=== PATIENT | male | born 1975 | race Two or more races ===

== ENCOUNTER 2017-10-01 11:49 | Inpatient (IN) | payer BC ==
[~2017-10-01] VITALS: Ht 175.3 cm; Wt 86.2 kg
[2017-10-01] MEDS ORDERED: IV NS 0.9% 1,000 ML BAG IV ONE (12:00)
[2017-10-01] MEDS ORDERED: ONDANSETRON HCL/PF 4 MG/2 ML VIAL IVP ONE (12:00)
[2017-10-01] MEDS ORDERED: HYDROMORPHONE INJ 2 MG/ML DISP.SYRIN IV ONE (12:00)
[2017-10-01 12:06] LABS: BASOPHILS # (AUTO) 0.1 /CMM (0.0-0.2); EOSINOPHILS % (AUTO) 0.1 % (0.0-6.0); HEMATOCRIT 45 % (39-51); HEMOGLOBIN 14.9 g/dL (13.5-17.5); LYMPHOCYTES # (AUTO) 0.9 /CMM (0.8-4.8); LYMPHOCYTES % (AUTO) 16.6 % (20.0-44.0); MEAN CORPUSCULAR HGB CONC 34 g/dl (31.0-36.0); MEAN CORPUSCULAR VOLUME 98 fL (80-96); MONOCYTES # (AUTO) 0.4 /CMM (0.1-1.30); MONOCYTES % (AUTO) 7.3 % (2.0-12.0); NEUTROPHILS # (AUTO) 4.2 /CMM (1.8-8.9); PLATELET COUNT (AUTO) 277 /CMM (150-450); RDW COEFFICIENT OF VARIATION 14.4 (11.5-15.0); RED BLOOD CELL COUNT(AUTO) 4.56 MIL/uL (4.5-6.0); WHITE BLOOD COUNT (AUTO) 5.6 K/uL (4.3-11.0)
[2017-10-01] MEDS ORDERED: ONDANSETRON HCL/PF 4 MG/2 ML VIAL ONE (12:08)
[2017-10-01] MEDS ORDERED: HYDROMORPHONE INJ 2 MG/ML DISP.SYRIN ONE (12:09)
[2017-10-01 12:16] LABS: CREATININE 0.9 mg/dL (0.6-1.3); POTASSIUM 3.6 mmol/L (3.5-5.1)
[2017-10-01 12:21] LABS: ALBUMIN 4.1 g/dL (3.4-5.0); BILIRUBIN,DIRECT 0.4 mg/dL (0.0-0.2); BILIRUBIN,TOTAL 1.2 mg/dL (0.2-1.0); TOTAL PROTEIN, SERUM 8.2 g/dL (6.4-8.2)
[2017-10-01 13:07] LABS: APPEARANCE,URINE Clear (CLEAR); BILIRUBIN,URINE SMALL (NEGATIVE); BLOOD, URINE Small Ery/uL (NEGATIVE); COLOR,URINE Dark (YELLOW); KETONES,URINE 40 (NEGATIVE); LEUKOCYTE ESTERASE ,URINE Negative (NEGATIVE); NITRITE, URINE Negative (NEGATIVE); PROTEIN,URINE Trace mg/dl (NEGATIVE); UGLUCOSE Negative (NEGATIVE)
--- NOTE | 2017-10-01 13:11 | NUR ---
CALLED [facility] [employer] [facility] AND REQUESTED A MED SURG BED FOR THIS PT.
--- NOTE | 2017-10-01 13:14 | NUR ---
CALLED [facility] FOR PANEL CALL AND DR BOSWELL WAS PAGED.
[2017-10-01 13:19] LABS: BACTERIA,URINE Few /HPF (None Seen); SQUAMOUS EPITHELIAL CELL,UR Rare /HPF (None Seen)
[2017-10-01] MEDS ORDERED: ESCI5TAB PO (13:47)
[2017-10-01] MEDS ORDERED: ALPR0.25 PO (13:47)
[2017-10-01] MEDS ORDERED: LORAZEPAM INJ 2 MG/ML VIAL IV ONE (14:00)
[2017-10-01] MEDS ORDERED: LORAZEPAM INJ 2 MG/ML VIAL ONE (14:01)
--- NOTE | 2017-10-01 14:09 | NUR ---
PT IS ASSIGNED TO MED SURG RM#: [id number], PT IS DOAGNOSED WITH ALCOHOL WITHDRAWL, AND DR BOSWELL IS THE ACCEPTING MD.
[2017-10-01] MEDS ORDERED: MAGNESIUM HYDROXIDE 30 ML UDC PO PRN (15:00)
[2017-10-01] MEDS ORDERED: Z GUARD REMEDY 2 OZ OINT TP PRN (15:00)
[2017-10-01] MEDS ORDERED: MAG HYDROX/AL HYDROX/SIMETH 30 ML UDC PO PRN (15:00)
[2017-10-01] MEDS: IV NS 0.9% 1,000 ML IV PRN (15:52)
--- NOTE | 2017-10-01 16:58 | NUR ---
PER DR BOSWELL, FULL LIQUID DIET
[2017-10-01] MEDS: HYDROCODONE/APAP 5/325MG 1 EACH TABLET PO PRN ×2 (17:21→21:27)
[2017-10-01] MEDS: Thiamine 100 MG in IV D5W 50 ML IV SCH (17:22)
[2017-10-01] MEDS: ONDANSETRON HCL/PF 4 MG/2 ML VIAL IVP PRN (18:15)
[2017-10-01] MEDS: LORAZEPAM INJ 2 MG/ML VIAL IV PRN (18:34)
--- NOTE | 2017-10-01 18:35 | NUR ---
ANXIETY NOTED- ATIVAN ADMINISTERED PER ORDERS
[2017-10-01 18:46] VITALS: BP 154/89
--- NOTE | 2017-10-01 19:30 | NUR ---
RN CLOSING NOTES: PATIENT AOX4. ARRIVED TO UNIT AT 1530. NO SIGNS OF DISTRESS NOTED. NONLABORED BREATHING NOTED ON ROOM AIR. CLEAR SPEECH. IV SITE ON RIGHT AC GAUGE 18. PER PATIENT, LAST DRINK WAS YESTERDAY. HE STATES THAT HE DRINKS 2 BOTTLES OF WINE EVERY DAY. ATIVAN GIVEN FOR ANXIETY DURING SHIFT. PATIENT VOMITED X1, YELLOW CLEAR AFTER FULL LIQUID DINNER. ZOFRAN ADMINISTERED. NORCO ADMINISTERED FOR ABDOMINAL PAIN. RIGHT UPPER QUADRANT ACHING AND AGGREVATED BY FOOD. AT END OF SHIFT, PATIENT EMESIS CEASED. PATIENT STATES THAT PAIN HAS DECREASED. BED IN LOWEST LOCKED POSITION. CALL LIGHT WITHIN REACH. NO ANXIETY NOTED AT END OF SHIFT. NO SEIZURES NOTED DURING SHIFT
--- NOTE | 2017-10-01 19:30 | NUR ---
RN NOTES RECEIVED PATIENT IN BED AWAKE, AO X 3, ABLE TO MAKE NEEDS KNOWN. NO ACUTE DISTRESS NOTED. MONITORED FOR PAIN. IV SITE PATENT, INTACT; IVF INFUSING ORDERED. SAFETY REMINDERS GIVEN. ON LOW BED WITH BILATERAL UPPER SIDE RAILS UP. CALL PETERSEN WITHIN EASY REACH. WILL CONTINUE TO MONITOR.
[2017-10-01 20:00] VITALS: BP 141/97
[2017-10-01 20:18] VITALS: BP 141/97
[2017-10-01] MEDS: ZOLPIDEM TARTRATE 5 MG TABLET PO PRN (21:52)
--- NOTE | 2017-10-02 01:00 | NUR ---
RN NOTES RECEIVED NEW ORDERS FROM DR. HULL FOR ADMIT TO MED SURG AND MORPHINE SULFATE 2 MG IV Q 3 HOURS PRN, NOTED AND CARRIED OUT.
[2017-10-02] MEDS: MORPHINE SULFATE INJ 4 MG/ML DISP.SYRIN IV PRN ×5 (02:02→20:19)
[2017-10-02] MEDS: IV NS 0.9% 1,000 ML IV PRN ×2 (02:02→15:43)
[2017-10-02] MEDS: LORAZEPAM INJ 2 MG/ML VIAL IV PRN ×4 (04:29→18:49)
--- NOTE | 2017-10-02 06:30 | NUR ---
RN NOTES PATIENT IN BED AWAKE, RESPIRATION EVEN. MONITORED FOR PAIN. IVF INFUSING. NEEDS ATTENDED. SAFETY PRECAUTIONS AND COMFORT MEASURES IN PLACE. WILL GIVE REPORT TO DAY SHIFT FOR CONTINUITY OF CARE.
[2017-10-02 07:07] LABS: BASOPHILS % (AUTO) 0.9 % (0.0-2.0); EOSINOPHILS % (AUTO) 0.8 % (0.0-6.0); HEMATOCRIT 38 % (39-51); LYMPHOCYTES # (AUTO) 0.7 /CMM (0.8-4.8); LYMPHOCYTES % (AUTO) 13.7 % (20.0-44.0); MEAN CORPUSCULAR HGB CONC 35 g/dl (31.0-36.0); MEAN CORPUSCULAR VOLUME 97 fL (80-96); MONOCYTES # (AUTO) 0.4 /CMM (0.1-1.30); MONOCYTES % (AUTO) 8.5 % (2.0-12.0); NEUTROPHILS # (AUTO) 3.7 /CMM (1.8-8.9); NEUTROPHILS % (AUTO) 76.1 % (43.0-81.0); PLATELET COUNT (AUTO) 215 /CMM (150-450); RED BLOOD CELL COUNT(AUTO) 3.87 MIL/uL (4.5-6.0); WHITE BLOOD COUNT (AUTO) 4.8 K/uL (4.3-11.0)
[2017-10-02 07:13] LABS: CALCIUM, SERUM 8.6 mg/dL (8.5-10.1); CREATININE 0.8 mg/dL (0.6-1.3); MAGNESIUM 1.5 mg/dL (1.8-2.4); PHOSPHORUS 2.8 mg/dL (2.5-4.9); POTASSIUM 3.3 mmol/L (3.5-5.1)
--- NOTE | 2017-10-02 07:40 | NUR ---
RN NOTES PATIENT A/OX4, BREATHING EVEN AND UNLABORED, DENIES PAIN AT THIS TIME, KEPT PATIENT COMFORTABLE, PATIENT STILL VERBALIZED FEELING A LITTLE SHAKY, BUT NOT IN ANY DISTRESS, NEEDS ATTENDED, CALL LIGHT WITHIN REACH, WILL CONTINUE TO MONITOR.
[2017-10-02 08:00] VITALS: BP 158/93
[2017-10-02] MEDS: Magnesium 1GM/D5W 100ML PREMIX 100 ML IV SCH ×4 (09:13→12:51)
--- NOTE | 2017-10-02 09:54 | NUR ---
RN NOTES PATIENT'S SEEN BY DR. BOSWELL, RECEIVED ORDER TO CHANGE LORAZEPAM FREQUENCY TO Q3HR DUE TO PATIENT'S ALCOHOL WITHDRAWAL SYMPTOMS. ORDER NOTED AND CARRIED OUT.
[2017-10-02] MEDS ORDERED: POTASSIUM CHLORIDE 20 MEQ TAB.PRT.SR PO SCH (10:30)
[2017-10-02] MEDS ORDERED: ALPRAZOLAM 0.25 MG TABLET PO PRN (11:00)
[2017-10-02] MEDS ORDERED: POTASSIUM CHLORIDE 20 MEQ TAB.PRT.SR PO ONE (11:00)
[2017-10-02] MEDS: CHLORDIAZEPOXIDE HCL 25 MG CAPSULE PO SCH ×2 (11:47→17:00)
[2017-10-02] MEDS: PANTOPRAZOLE 40 MG VIAL IV SCH ×2 (11:48→20:21)
--- NOTE | 2017-10-02 12:22 | NUR ---
Social service consult requested by Dr. Johnson for alcohol withdrawal. Pt. is a 42 year old male who was admitted to [facility] for alcohol withdrawal. SW met with pt. bedside. Pt. is alert and oriented x 4. Pt. is friendly and pleasant with SW during the assessment. Pt. is originally from [place] and came to [place] two days ago to attend an inpatient alcohol treatment program called [facility] in [place]. Pt. had checked himself into the reghab, however, complained of nausea, vomiting and epigastric pain and was sent to the hospital for evaluation. According to the pt. he last consumed alcohol 18 hours ago. Pt. denied to SW when asked if he had anxiety and depression. However per Dr. Johnson's H&P, pt. had extended history of anxiety and depression. Pt. denies suicidal/ homicidal ideations and visual/auditory hallucinations at this time. Pt. states he drinks approximately two wine bottles per day. Pt. has been drinking for the past 20 years. Pt. is and has six children who reside in [place]. Pt. denies drugs and marijuana use. No other social service needs are requested at this time. SW is available, if needed. Pt. to discharge back to [facility] [place] once medically cleared.
[2017-10-02 16:00] VITALS: BP 138/86
[2017-10-02] MEDS: Thiamine 100 MG in IV D5W 50 ML IV SCH (16:38)
[2017-10-02] MEDS: METOCLOPRAMIDE HCL 10 MG/2 ML VIAL IV SCH (18:45)
--- NOTE | 2017-10-02 18:55 | NUR ---
RN NOTES PATIENT A/OX4, BREATHING EVEN AND UNLABORED, NO SOB NOTED, STOOL SPECIMEN OBTAINED AND SENT TO LAB, ABDOMEN KUB DONE, RESULT STILL PENDING. PIV PATENT AND INTACT ON RIGHT HAND, IVF OFF AT THIS TIME, PER PATIENT'S REQUEST, PATIENT HAS BEEN AMBULATING ON THE HALLWAY, WITH STEADY GAIT. NO DISTRESS NOTED. PATIENT JUST RECEIVED PAIN MEDICATION FOR ABDOMINAL PAIN. ALL NEEDS ATTENDED AND MET, CALL LIGHT WITHIN REACH, WILL ENDORSE TO GRAIN OILSEED OR PASTURE FARM WORKER FOR IRINEO.
--- NOTE | 2017-10-02 19:00 | NUR ---
MS RN NOTES RECEIVE PT IN BED A/OX 4, NO S/S OF DISTRESS, STABLE, SAFETY MEASURES IN PLACE, CALL LIGHT WITHIN REACH, WILL CONTINUE TO MONITOR
[2017-10-02 20:00] VITALS: BP 129/95
[2017-10-02 20:20] LABS: INR 0.97 (0.87-1.13)
[2017-10-02 20:25] LABS: ALBUMIN 3.5 g/dL (3.4-5.0); BILIRUBIN,DIRECT 0.4 mg/dL (0.0-0.2); BILIRUBIN,TOTAL 1.3 mg/dL (0.2-1.0)
[2017-10-02 20:27] LABS: OCCULT BLOOD STOOL NEGATIVE (NEGATIVE)
[2017-10-02 20:33] LABS: BASOPHILS % (AUTO) 0.5 % (0.0-2.0); EOSINOPHILS % (AUTO) 1.4 % (0.0-6.0); HEMATOCRIT 38 % (39-51); HEMOGLOBIN 13.3 g/dL (13.5-17.5); LYMPHOCYTES % (AUTO) 19.2 % (20.0-44.0); MEAN CORPUSCULAR HGB CONC 35 g/dl (31.0-36.0); MEAN CORPUSCULAR VOLUME 98 fL (80-96); MONOCYTES # (AUTO) 0.4 /CMM (0.1-1.30); MONOCYTES % (AUTO) 7.5 % (2.0-12.0); NEUTROPHILS # (AUTO) 3.7 /CMM (1.8-8.9); NEUTROPHILS % (AUTO) 71.4 % (43.0-81.0); PLATELET COUNT (AUTO) 209 /CMM (150-450); RDW COEFFICIENT OF VARIATION 13.7 (11.5-15.0); RED BLOOD CELL COUNT(AUTO) 3.92 MIL/uL (4.5-6.0); WHITE BLOOD COUNT (AUTO) 5.2 K/uL (4.3-11.0)
[2017-10-02] MEDS: ZOLPIDEM TARTRATE 5 MG TABLET PO PRN (21:09)
[2017-10-03] MEDS: LORAZEPAM INJ 2 MG/ML VIAL IV PRN ×2 (00:12→14:32)
--- NOTE | 2017-10-03 01:02 | NUR ---
PT REMAIN CALM NO S/S OF DISTRESS VS STABLE
[2017-10-03] MEDS: METOCLOPRAMIDE HCL 10 MG/2 ML VIAL IV SCH ×3 (02:30→18:44)
[2017-10-03] MEDS: IV NS 0.9% 1,000 ML IV PRN ×2 (02:30→13:07)
--- NOTE | 2017-10-03 06:30 | NUR ---
MS RN NOTES PT IN BED ASLEEP AND EASILY AWAKEN, NOT IN DISTRESS, AM CARE PROVIDED. TOLERATING ROOM AIR 100%. STABLE CONDITION. NO ACUTE CHANGES THROUGHOUT THE SHIFT. MAINTAINS NPO. KEPT CLEAN AND DRY AND COMFORT. NURSING CARE RENDERED. NEEDS ATTENDED AND ANTICIPATED. GOOD SKIN CARE PROVIDED. ON LOW BED TO ENSURE SAFETY, CALL LIGHT WITHIN REACH, WILL ENDORSE TO THE NEXT SHIFT CONTINUE PLAN OF CARE
--- NOTE | 2017-10-03 07:10 | NUR ---
MS/RN Patient received Patient received from nigt shift. Sleeping soundly, appears in no respiratory distress. Safety meaures in place, call ligt within reach. Will continue to monitor and ensure safety.
[2017-10-03] MEDS: PANTOPRAZOLE 40 MG VIAL IV SCH ×2 (07:48→20:18)
[2017-10-03] MEDS: CHLORDIAZEPOXIDE HCL 25 MG CAPSULE PO SCH ×2 (07:49→16:59)
[2017-10-03] MEDS: ONDANSETRON HCL/PF 4 MG/2 ML VIAL IVP PRN (07:52)
[2017-10-03 08:00] VITALS: BP 142/103
--- NOTE | 2017-10-03 09:00 | NUR ---
MS/RN Morning medications Morning medications administered with small sips of water.
[2017-10-03] MEDS: ESCITALOPRAM OXALATE (10 MG) 10 MG TABLET PO SCH (09:07)
[2017-10-03] MEDS: HYDROCODONE/APAP 5/325MG 1 EACH TABLET PO PRN ×2 (11:08→18:43)
--- NOTE | 2017-10-03 11:10 | NUR ---
MS/RN Pain Complaining of generalized body pain and requesting medication. Shelburn administered as ordered, will continue to monitor.
--- NOTE | 2017-10-03 12:30 | NUR ---
MS/RN S/B Dr Johnson Seen by Dr Johnson - morning labs ordered.
--- NOTE | 2017-10-03 14:30 | NUR ---
MS/RN Ativan Ativan administered for tremors.
--- NOTE | 2017-10-03 15:00 | NUR ---
MS/RN S/B GI Seen by GI - start clear liquids, EGD if clinically warrented.
[2017-10-03 16:09] VITALS: BP 137/86
[2017-10-03] MEDS: THIAMINE HCL 100 MG TABLET PO SCH (16:59)
--- NOTE | 2017-10-03 18:31 | NUR ---
MS/RN End note Tolerating clear liquids, no nausea or vomiting. IVF continue to infuse at 100ml/hr, no signs of infiltration. Will endorse to caustic cresylate shift superintendent.
--- NOTE | 2017-10-03 19:00 | NUR ---
MS RN NOTES RECEIVE PT IN BED A/O X 4 NO S/S OF DISTRESS, STABLE, SAFETY MEASURES IN PLACE, CALL LIGHT WITHIN REACH, WILL CONTINUE TO MONITOR
[2017-10-03 20:00] VITALS: BP 139/78
[2017-10-03] MEDS: ZOLPIDEM TARTRATE 5 MG TABLET PO PRN (22:00)
[2017-10-04] MEDS: IV NS 0.9% 1,000 ML IV PRN ×2 (00:05→13:46)
[2017-10-04] MEDS: METOCLOPRAMIDE HCL 10 MG/2 ML VIAL IV SCH ×3 (03:05→18:08)
[2017-10-04] MEDS: LORAZEPAM INJ 2 MG/ML VIAL IV PRN ×2 (03:07→13:46)
--- NOTE | 2017-10-04 04:07 | NUR ---
PT REMAIN CALM NO S/S OF DISTRESS VS STABLE
[2017-10-04] MEDS: ACETAMINOPHEN 325 MG TABLET PO PRN (04:56)
[2017-10-04 06:17] LABS: BASOPHILS # (AUTO) 0.1 /CMM (0.0-0.2); BASOPHILS % (AUTO) 1.1 % (0.0-2.0); EOSINOPHILS % (AUTO) 3.1 % (0.0-6.0); HEMATOCRIT 37 % (39-51); LYMPHOCYTES # (AUTO) 0.8 /CMM (0.8-4.8); LYMPHOCYTES % (AUTO) 16.4 % (20.0-44.0); MEAN CORPUSCULAR HGB CONC 35 g/dl (31.0-36.0); MEAN CORPUSCULAR VOLUME 99 fL (80-96); MONOCYTES # (AUTO) 0.4 /CMM (0.1-1.30); MONOCYTES % (AUTO) 7.2 % (2.0-12.0); NEUTROPHILS # (AUTO) 3.6 /CMM (1.8-8.9); NEUTROPHILS % (AUTO) 72.2 % (43.0-81.0); PLATELET COUNT (AUTO) 206 /CMM (150-450); RDW COEFFICIENT OF VARIATION 14.7 (11.5-15.0); WHITE BLOOD COUNT (AUTO) 4.9 K/uL (4.3-11.0)
--- NOTE | 2017-10-04 06:32 | NUR ---
MS RN NOTES PT IN BED ASLEEP AND EASILY AWAKEN, TOLERATING ROOM AIR 100%. NOT IN DISTRESS, AM CARE PROVIDED. STABLE CONDITION. NO ACUTE CHANGES THROUGHOUT THE SHIFT. KEPT CLEAN AND DRY AND COMFORT. NURSING CARE RENDERED. NEEDS ATTENDED AND ANTICIPATED. GOOD SKIN CARE PROVIDED. ON LOW BED TO ENSURE SAFETY, CALL LIGHT WITHIN REACH, WILL ENDORSE TO THE NEXT SHIFT CONTINUE PLAN OF CARE
[2017-10-04 06:39] LABS: CALCIUM, SERUM 8.6 mg/dL (8.5-10.1); CREATININE 0.8 mg/dL (0.6-1.3); MAGNESIUM 1.9 mg/dL (1.8-2.4); PHOSPHORUS 3.9 mg/dL (2.5-4.9); POTASSIUM 3.7 mmol/L (3.5-5.1)
--- NOTE | 2017-10-04 07:10 | NUR ---
MS RN NOTES RECEIVED PATIENT IN BED ALERT ORIENTED X 4. NO ACUTE DISTRESS NOTED. NO SOB NOTED. IV ACCESS PATENT AND INTACT. SAFETY MEASURES IN PLACE. CALL LIGHT WITHIN REACH. WILL CONTINUE TO MONITOR ACCORDINGLY.
[2017-10-04 08:39] VITALS: BP 128/77
[2017-10-04] MEDS: ESCITALOPRAM OXALATE (10 MG) 10 MG TABLET PO SCH (08:42)
[2017-10-04] MEDS: PANTOPRAZOLE 40 MG VIAL IV SCH ×2 (08:44→20:40)
[2017-10-04] MEDS: CHLORDIAZEPOXIDE HCL 25 MG CAPSULE PO SCH ×2 (08:44→16:43)
[2017-10-04] MEDS: THIAMINE HCL 100 MG TABLET PO SCH (08:44)
[2017-10-04] MEDS: HYDROCODONE/APAP 5/325MG 1 EACH TABLET PO PRN ×3 (11:14→22:39)
--- NOTE | 2017-10-04 12:37 | NUR ---
RN NOTES CLARIFIED DIET ORDERS WITH BELL HOLE DIGGER CLEMENTINA CHICAS WITH ORDERS NPO AFTER MIDNIGHT FOR EGD TOMORROW. NOTED AND CARRIED OUT.
[2017-10-04 15:50] VITALS: BP 137/89
--- NOTE | 2017-10-04 18:18 | NUR ---
RN NOTES PATIENT IN BED WATCHING TV, ALERT ORIENTED X4. NO ACUTE DISTRESS NOTED. IV ACCESS PATENT AND INTACT. DUE MEDICATIONS GIVEN, NO ASE NOTED. NEEDS ATTENDED AND ANTICIPATED. SAFETY MEASURES IN PLACE. CALL LIGHT WITHIN REACH. WILL CONTINUE TO MONITOR ACCORDINGLY. WILL ENDORSE TO NIGHT NURSE FOR CONTINUITY OF CARE.
--- NOTE | 2017-10-04 19:30 | NUR ---
RN NOTES RECEIVED PATIENT IN BED AWAKE, AO X 3, ABLE TO MAKE NEEDS KNOWN. NO ACUTE DISTRESS NOTED. PAIN TOLERABLE AT THIS TIME PER PATIENT. IV SITE PATENT, INTACT; IVF INFUSING ORDERED. SAFETY REMINDERS GIVEN. ON LOW BED WITH BILATERAL UPPER SIDE RAILS UP. CALL PETERSEN WITHIN EASY REACH. WILL CONTINUE TO MONITOR.
[2017-10-04 20:00] VITALS: BP 131/81
[2017-10-04] MEDS: ZOLPIDEM TARTRATE 5 MG TABLET PO PRN (22:39)
[2017-10-05] MEDS: IV NS 0.9% 1,000 ML IV PRN (00:30)
[2017-10-05] MEDS: METOCLOPRAMIDE HCL 10 MG/2 ML VIAL IV SCH ×2 (03:33→11:32)
[2017-10-05] MEDS: MORPHINE SULFATE INJ 4 MG/ML DISP.SYRIN IV PRN ×2 (03:33→10:10)
[2017-10-05 05:51] LABS: BASOPHILS % (AUTO) 0.6 % (0.0-2.0); EOSINOPHILS % (AUTO) 3.2 % (0.0-6.0); HEMATOCRIT 37 % (39-51); HEMOGLOBIN 12.6 g/dL (13.5-17.5); LYMPHOCYTES # (AUTO) 1.1 /CMM (0.8-4.8); LYMPHOCYTES % (AUTO) 21.5 % (20.0-44.0); MEAN CORPUSCULAR HGB CONC 34 g/dl (31.0-36.0); MEAN CORPUSCULAR VOLUME 98 fL (80-96); MONOCYTES # (AUTO) 0.5 /CMM (0.1-1.30); MONOCYTES % (AUTO) 9.2 % (2.0-12.0); NEUTROPHILS # (AUTO) 3.2 /CMM (1.8-8.9); NEUTROPHILS % (AUTO) 65.5 % (43.0-81.0); PLATELET COUNT (AUTO) 199 /CMM (150-450); RDW COEFFICIENT OF VARIATION 14.2 (11.5-15.0); RED BLOOD CELL COUNT(AUTO) 3.72 MIL/uL (4.5-6.0); WHITE BLOOD COUNT (AUTO) 4.9 K/uL (4.3-11.0)
[2017-10-05 06:05] LABS: CALCIUM, SERUM 8.8 mg/dL (8.5-10.1); CREATININE 0.8 mg/dL (0.6-1.3); MAGNESIUM 1.8 mg/dL (1.8-2.4); PHOSPHORUS 4.2 mg/dL (2.5-4.9); POTASSIUM 3.5 mmol/L (3.5-5.1)
--- NOTE | 2017-10-05 06:30 | NUR ---
RN NOTES PATIENT ASLEEP, EASILY AROUSABLE. RESPIRATIONS EVEN. NO SIGNS OF PAIN NOTED. DUE MEDS GIVEN WITH NO ASE NOTED. NEEDS ATTENDED. NPO SINCE MIDNIGHT. SAFETY PRECAUTIONS AND COMFORT MEASURES IN PLACE. WILL GIVE REPORT TO DAY SHIFT FOR CONTINUITY OF CARE.
[2017-10-05 08:00] VITALS: BP 135/88
--- NOTE | 2017-10-05 08:00 | NUR ---
MS RN NOTES PATIENT IN BED RESTING NO SOB OR ACUTE DISTRESS NOTED. PATIENT ALERT, ORIENTED X4. PATIENT TRANSFERRED TO OR FOR SCHEDULED EGD. PATIENT IN STABLE CONDITION. WILL CONTINUE TO MONITOR.
--- NOTE | 2017-10-05 10:00 | NUR ---
MS RN NOTES PATIENT RETURNED FROM OR S/P EGD IN STABLE CONDITION. DENIES ANY PAIN OR DISCOMFORT. VS IN STABLE CONDITION. ORDERS TO RESUME PREOP ORDERS PATIENT TO BE STARTED ON CLEAR LIQUID DIET. WILL CONTINUE TO MONITOR.
[2017-10-05] MEDS: THIAMINE HCL 100 MG TABLET PO SCH (10:09)
[2017-10-05] MEDS: ACETAMINOPHEN 325 MG TABLET PO PRN (10:09)
[2017-10-05] MEDS: CHLORDIAZEPOXIDE HCL 25 MG CAPSULE PO SCH (10:09)
[2017-10-05] MEDS: ESCITALOPRAM OXALATE (10 MG) 10 MG TABLET PO SCH (10:09)
[2017-10-05] MEDS: PANTOPRAZOLE 40 MG VIAL IV SCH (10:10)
[2017-10-05] MEDS ORDERED: PANT40TA2 PO (12:47)
--- NOTE | 2017-10-05 14:00 | NUR ---
MS RN NOTES PATIENT SEEN AND EVALUATED BY DR. BOSWELL ORDERS NOTED AND CARRIED OUT. PATIENT TO BE DISCHARGED TO REHAB FOR ETOH USE. PATIENT TO START REGULAR DIET. NOTED AND CARRIED OUT.
[2017-10-05 16:00] VITALS: BP 134/85
--- NOTE | 2017-10-05 16:00 | NUR ---
MS RN NOTES PATIENT DISCHARGED HOME IN STABLE CONDITION. ALL BELONGINGS ACCOUNTED FOR, BELONGING LIST SIGNED. MD AWARE OF ALL ABNORMAL LABS. PERIPHERAL IV REMOVED WITH MINIMAL BLEEDING NOTED. DISCHARGE TEACHING PROVIDED TO PATIENT VERBALIZED UNDERSTANDING. ID BAND REMOVED. DISCHARGE PROTOCOL FOLLOWED. PATIENT ESCORTED TO CAR.
== END 2017-10-05 16:00 | disposition home or self-care (01) | DRG 896 ==
LOC: ER 11:50 → MEDSG2 14:43
PROVIDERS: ADMIT Internal Medicine; ATTEND Internal Medicine
PROC: 0DB68ZX Excision of Stomach, Via Natural or Artificial Opening Endoscopic, Diagnostic (ICD-10-PCS; principal; 2017-10-05 08:34)
PROC: 0DB98ZX Excision of Duodenum, Via Natural or Artificial Opening Endoscopic, Diagnostic (ICD-10-PCS; principal; 2017-10-05 08:34)
PROC: 0DB58ZX Excision of Esophagus, Via Natural or Artificial Opening Endoscopic, Diagnostic (ICD-10-PCS; principal; 2017-10-05 08:34)
DX: F10.239 Alcohol dependence with withdrawal, unspecified (principal); K85.90 Acute pancreatitis without necrosis or infection, unspecified; E87.8 Other disorders of electrolyte and fluid balance, not elsewhere classified; K56.7 Ileus, unspecified; E44.1 Mild protein-calorie malnutrition; K21.0 Gastro-esophageal reflux disease with esophagitis; E86.0 Dehydration; R74.0 Nonspecific elevation of levels of transaminase and lactic acid dehydrogenase [LDH]; Z79.899 Other long term (current) drug therapy; F41.9 Anxiety disorder, unspecified; F32.9 Major depressive disorder, single episode, unspecified; Z98.890 Other specified postprocedural states; K29.70 Gastritis, unspecified, without bleeding; Z68.28 Body mass index [BMI] 28.0-28.9, adult; K76.0 Fatty (change of) liver, not elsewhere classified; D50.9 Iron deficiency anemia, unspecified; K70.10 Alcoholic hepatitis without ascites; E66.9 Obesity, unspecified; K29.80 Duodenitis without bleeding; K25.9 Gastric ulcer, unspecified as acute or chronic, without hemorrhage or perforation
CPT/HCPCS: 36415; 74018; 80048-TC; 80061-TC; 80074; 80076-TC; 81000-TC; 82247-TC; 82248-TC; 82272-TC; 82962-TC; 83690-TC; 83735-TC; 84100-TC; 84484-TC; 85025-TC; 85610-TC; 85730-TC; 87081-TC; 87086-TC; 88305-TC; 88313-TC; 88342; A4606; C9113; J1170; J2060; J2270; J2405; J2765; J3411; J3475; J3490; J7030; J7060; Z7610